=== PATIENT | female | born 1930 | race Caucasian/White ===

== ENCOUNTER 2017-12-03 08:48 | Emergency (ER) | payer MEDICARE, OTHER ==
[2017-12-03 09:20] VITALS: BP 144/75
[2017-12-03] MEDS ORDERED: Ciprofloxacin 0.3% Ophth Soln 2.5 ML Bottle ONE (09:50)
--- NOTE | 2017-12-03 10:58 | EDM.PDOC ---
ED HPI GENERAL MEDICAL PROBLEM - General Chief Complaint: General Stated Complaint: Eye Infection Time Seen by Provider: 12/03/17 09:40 Source of Information: Reports: Patient History Limitations: Reports: No Limitations - History of Present Illness INITIAL COMMENTS - FREE TEXT/NARRATIVE: This is a pleasant 87yo F here for left eye irritation. She states there has been increased irritation of the fleshy part on the right of the left eye. She has increased tearing and some sticky discharge. Denies any visual concerns but did tell her family member it was a little blurry in the morning but now states that quickly resolved and all that remains is the irritation. Denies any fever, no chills, no chest pain or shortness of breath. Onset: Gradual Duration: Day(s): Location: Reports: Other (left eye) Quality: Reports: Other (scratchy) Severity: Mild Improves with: Reports: None Worsens with: Reports: None - Related Data Allergies Allergy/AdvReac Type Severity Reaction Status Date / Time codeine Allergy Nausea and Verified 01/24/16 11:14 Vomiting Home Meds: Home Meds Albuterol Sulfate [Ventolin Hfa] 2 puff IH QID PRN 01/24/16 [History] Aspirin [Gema Chewable] 81 mg PO ASDIRECTED 01/24/16 [History] Calcium Carbonate/Vitamin D3 [Calcium 600 + Vit D 200] 1 each PO ASDIRECTED [History] Multivit-Min/FA/Lycopene/Lut [Centrum Silver Tablet] 1 each PO ASDIRECTED [History] Ondansetron [Zofran ODT] 4 mg PO Q6H PRN #15 tab.dis 01/24/16 [Rx] amLODIPine [Norvasc] 5 mg PO DAILY 01/24/16 [History] Past Medical History HEENT History: Reports: Epistaxis, Other (See Below) Other HEENT History: 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 Cardiovascular History: Reports: Hypertension Respiratory History: Reports: SOB, Other (See Below) Other Respiratory History: hx of cough for over 20 years-has seen specialist Gastrointestinal History: Reports: Other (See Below) Other Gastrointestinal History: hx of sudden onset N/V and diarrhea [employer] History: Reports: Musculoskeletal History: Reports: Osteoporosis Neurological History: Reports: TIA, Vertigo - Infectious Disease History Infectious Disease History: Reports: Chicken Pox, Measles, Mumps, Rubella - Past Surgical History Other Cardiovascular Surgeries/Procedures: hx of cough for over 20 years- has seen specialist Female Surgical History: Reports: Hysterectomy, Tubal Ligation Musculoskeletal Surgical History: Reports: Other (See Below) Social & Family History - Family History Family Medical History: Noncontributory - Tobacco Use Smoking Status *Q: Never Smoker Second Hand Smoke Exposure: No - Caffeine Use Caffeine Use: Reports: Coffee Other Caffeine Use: drinks 1 cup a day ED ROS GENERAL - Review of Systems Review Of Systems: ROS reveals no pertinent complaints other than HPI. ED EXAM, GENERAL - Physical Exam Exam: See Below Exam Limited By: No Limitations General Appearance: Alert, WD/WN, No Apparent Distress Eye Exam: Left Eye: Conjunctival Injection Course - Vital Signs Last Recorded V/S: Last Vital Signs Temp 36.9 C 12/03/17 09:18 Pulse 81 12/03/17 09:18 Resp 16 12/03/17 09:18 BP 144/75 H 12/03/17 09:18 Pulse Ox 98 12/03/17 09:18 - Orders/Labs/Meds Meds: Medications Discontinued Medications Generic Name Dose Route Start Last Admin Trade Name Freq PRN Reason Stop Dose Admin Ciprofloxacin 2.5 ml 12/03/17 09:50 Ciloxan 0.3% Ophth Soln .ROUTE 12/03/17 09:51 .STK-MED ONE Departure - Departure Time of Disposition: 09:51 Disposition: Home, Self-Care 01 Clinical Impression: Conjunctivitis Qualifiers: Conjunctivitis type: acute Acute conjunctivitis type: unspecified Laterality: left Qualified Code(s): H10.32 - Unspecified acute conjunctivitis, left eye - Discharge Information Instructions: Bacterial Conjunctivitis, [id number] Referrals: PCP,None [Primary Care Provider] - Forms: ED Department Discharge Care Plan Goals: Use eye drops as prescribed. Return to hospital or clinic if symptoms are not improving.
== END 2017-12-03 09:52 | disposition home or self-care (01) ==
LOC: LB.ED 08:48
DX: H10.32 Unspecified acute conjunctivitis, left eye (principal); I10 Essential (primary) hypertension; Z88.5 Allergy status to narcotic agent
CPT/HCPCS: 99283; A9270-GY